=== PATIENT | female | born 2000 | race Caucasian/White ===

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

== ENCOUNTER 2019-11-13 14:57 | Emergency (ER) | payer SELFPAY ==
[2019-11-13] MEDS ORDERED: Diphtheria,Pertussis(Acell),Tetanus Vaccine 0.5 ML Syringe IM ONE (16:51)
[2019-11-13] MEDS ORDERED: traMADol 50 MG Tab PO ONE (16:52)
[2019-11-13] MEDS ORDERED: Octyl 2-Cyanoacrylate 1 APPLIC TUBE TOP ONE (16:52)
--- NOTE | 2019-11-13 17:00 | EDM.PDOC ---
ED HPI GENERAL MEDICAL PROBLEM - General Chief Complaint: Laceration Stated Complaint: HEAD INJURY Time Seen by Provider: 11/13/19 16:51 Source of Information: Reports: Patient History Limitations: Reports: No Limitations - History of Present Illness INITIAL COMMENTS - FREE TEXT/NARRATIVE: HISTORY AND PHYSICAL: History of present illness: Patient is a 19-year-old female who presents to the emergency room with complaints of soft tissue swelling and bruising to the upper forehead and a laceration across the bridge of her nose. Patient states that her television fell off the wall and hit her in the face. She denies any loss of consciousness. She is complaining of headache, blurred vision and laceration across the bridge of her nose. Unsure of her last tetanus update. Patient denies any fever, chills, headache, change in vision, syncope or near syncope. Denies any chest pain, back pain, shortness of breath or cough. Denies any GI or symptoms. patient has been eating and drinking appropriately. Review of systems: As per history of present illness and below otherwise all systems reviewed and negative. Past medical history: As per history of present illness and as reviewed below otherwise noncontributory. Surgical history: As per history of present illness and as reviewed below otherwise noncontributory. Social history: See social history for further information Family history: As per history of present illness and as reviewed below otherwise noncontributory. Physical exam: General: Well-developed and well-nourished 19-year-old female. Alert and oriented. Nontoxic-appearing and in no acute distress. HEENT: Quarter size area of soft tissue swelling and bruising noted above the left eyebrow. 1 cm superficial "C" shaped laceration noted across the bridge of nose. Both nares are patent. Scalp is nontender. 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 No drooling or trismus noted. No meningeal signs. No hot potato voice noted. Lungs: Clear to auscultation, breath sounds equal bilaterally, chest nontender. Heart: S1S2, regular rate and rhythm without overt murmur Abdomen: Soft, nondistended, nontender. Negative for masses or hepatosplenomegaly. Negative for costovertebral tenderness. Pelvis: Stable nontender. C-spine/Back: No pinpoint vertebral tenderness upon palpation. No crepitus, step -offs or obvious deformities. Patient is ambulatory into the emergency room without difficulty or deficit. Able to rock back on heels and walk on toes. Denies any urinary or fecal incontinence. Denies any numbness, tingling or saddle paresthesia. Skin: See HEENT for details. Otherwise skin is intact, warm, dry. No lesions or rashes noted. Extremities: Atraumatic, moves all extremities per self without difficulty or deficits, negative for cords or calf pain. Neurovascular unremarkable. Neuro: Awake, alert, oriented. Cranial nerves II through XII unremarkable. Cerebellum unremarkable. Motor and sensory unremarkable throughout. Exam nonfocal. Notes: Wound care was provided. Steri-Strips and Dermabond applied over the lacerated area. X-ray shows numerous lucencies around the teeth with several dental caries which are pre-existing and represent dental disease. There is diffuse soft tissue swelling and a hematoma of the right lateral face. No facial fractures noted. Supportive care measures were reviewed and discussed. Voices understanding and is agreeable to plan of care. Denies any further questions or concerns at this time. Diagnostics: Head and maxillofacial CT Therapeutics: Wound care, TDA P, Dermabond Prescription: Tramadol Impression: Head injury Laceration Plan: 1. Please keep the laceration clean and dry. Continue to monitor for signs of infection. 2. Please review and follow the head injury instructions that we discussed in her printed in your discharge packet. Limit any physical activities and follow cognitive rest (decrease screen time, reading, tv, etc..) over the next 24 hours pending resolution of symptoms. 3. Tylenol and/or ibuprofen as needed for pain management. 4. Follow-up with your primary care provider as we discussed. Return to the ED as needed and as discussed. Definitive disposition and diagnosis as appropriate pending reevaluation and review of above. Face Pain Score (Numeric/FACES): 9 - Related Data Allergies Allergy/AdvReac Type Severity Reaction Status Date / Time No Known Allergies Allergy Verified 11/13/19 16:16 Home Meds: Home Meds . 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 Musculoskeletal History: Reports: None Neurological History: Reports: None Psychiatric History: Reports: None Endocrine/Metabolic History: Reports: None Hematologic History: Reports: None Immunologic History: Reports: None Oncologic (Cancer) History: Reports: None Dermatologic History: Reports: None - Infectious Disease History Infectious Disease History: Reports: None - Past Surgical History Head Surgeries/Procedures: Reports: None Social & Family History - Family History Family Medical History: Noncontributory - Tobacco Use Smoking Status *Q: Never Smoker - Caffeine Use Caffeine Use: Reports: None - Recreational Drug Use Recreational Drug Use: No ED ROS GENERAL - Review of Systems Review Of Systems: Comprehensive ROS is negative, except as noted in HPI. ED EXAM, SKIN/RASH Exam: See Below (See dictation) Course - Vital Signs Last Recorded V/S: Last Vital Signs Temp 99.1 F 11/13/19 16:17 Pulse 85 11/13/19 16:17 Resp 16 11/13/19 16:17 BP 128/79 11/13/19 16:17 Pulse Ox 98 11/13/19 16:17 - Orders/Labs/Meds Orders: Active Orders 24 hr Category Date Time Status Vaccines to be Administered [RC] PER UNIT ROUTINE Care 11/13/19 16:52 Active Meds: Medications Discontinued Medications Generic Name Dose Route Start Last Admin Trade Name Ton PRN Reason Stop Dose Admin Diphtheria/Tetanus/Acell Pertussis 0.5 ml 11/13/19 16:51 11/13/19 17:03 Adacel IM 11/13/19 16:52 0.5 ml .ONCE ONE Administration Octyl Cyanoacrylate 1 applic 11/13/19 16:52 11/13/19 17:05 Dermabond Mini TOP 11/13/19 16:53 1 applic ONETIME ONE Administration Tramadol HCl 50 mg 11/13/19 16:52 11/13/19 17:04 Ultram PO 11/13/19 16:53 50 mg ONETIME ONE Administration Departure - Departure Time of Disposition: 18:00 Disposition: Home, Self-Care 01 Clinical Impression: Head injury, Laceration - Discharge Information Referrals: PCP,None [Primary Care Provider] - Forms: ED Department Discharge Additional Instructions: The following information is given to patients seen in the emergency department who are being discharged to home. This information is to outline your options for follow-up care. We provide all patients seen in our emergency department with a follow-up referral. The need for follow-up, as well as the timing and circumstances, are variable depending upon the specifics of your emergency department visit. If you don't have a primary care physician on staff, we will provide you with a referral. We always advise you to contact your personal physician following an emergency department visit to inform them of the circumstance of the visit and for follow-up with them and/or the need for any referrals to a consulting specialist. The emergency department will also refer you to a specialist when appropriate. This referral assures that you have the opportunity for follow-up care with a specialist. All of these measure are taken in an effort to provide you with optimal care, which includes your follow-up. Under all circumstances we always encourage you to contact your private physician who remains a resource for coordinating your care. When calling for follow-up care, please make the office aware that this follow-up is from your recent emergency room visit. If for any reason you are refused follow-up, please contact the [facility] Emergency Department at and asked to speak to the emergency department charge nurse. [facility] [address] [place] [id number] [facility] [address] [place] [id number] 1. Please keep the laceration clean and dry. Continue to monitor for signs of infection. 2. Please review and follow the head injury instructions that we discussed in her printed in your discharge packet. Limit any physical activities and follow cognitive rest (decrease screen time, reading, tv, etc..) over the next 24 hours pending resolution of symptoms. 3. Tylenol and/or ibuprofen as needed for pain management. 4. Follow-up with your primary care provider as we discussed. Return to the ED as needed and as discussed. Sepsis Event Note - Evaluation Sepsis Screening Result: No Definite Risk - Focused Exam Vital Signs: Vital Signs Temp Pulse Resp BP Pulse Ox 11/13/19 16:17 99.1 F 85 16 128/79 98 Date Exam was Performed: 11/13/19 Time Exam was Performed: 17:58 - My Orders Last 24 Hours: My Active Orders 11/13/19 16:52 Vaccines to be Administered [RC] PER UNIT ROUTINE - Assessment/Plan Last 24 Hours: My Active Orders 11/13/19 16:52 Vaccines to be Administered [RC] PER UNIT ROUTINE
--- NOTE | 2019-11-13 17:41 | CT ---
Head CT Technique: Multiple axial sections through the brain were obtained. Intravenous contrast was utilized. Findings: Significant soft tissue hematoma and swelling is noted within the right lateral face in the area of the ear and more inferiorly. Additional soft tissue swelling is seen within the left anterior frontal scalp and within the right upper parietal scalp. No abnormal parenchymal densities are seen intracranially. No evidence of intracranial hemorrhage. No midline shift or mass effect is seen. Ventricles along with basal cisterns and sulci over the convexities are within normal limits. Bone window settings were reviewed. No acute calvarial finding is seen. Mastoid sinuses and middle ear cavities are clear. Impression: 1. Soft tissue findings as noted above. 2. No acute intracranial abnormality is seen. No acute skull fracture is seen. Diagnostic code #3 This report was dictated in [place] Standard Time
--- NOTE | 2019-11-13 17:56 | CT ---
Facial bones: Multiple axial sections through the facial bones were obtained. Reconstructed coronal and sagittal images were obtained. Findings: Numerous lucencies are seen around the teeth. Several dental caries also appear to be present. No facial bone fracture is noted. Soft tissue swelling and hematoma is noted within the right side of the face. Right left globes are symmetric in size. No retrobulbar abnormality is seen. Impression: 1. Numerous lucencies around the teeth as well as several dental caries, these findings are pre-existing and represent dental disease. 2. Diffuse soft tissue swelling and hematoma within the right face. 3. No acute facial bone fracture is seen. Diagnostic code #3 This report was dictated in [place] Standard Time
== END 2019-11-13 18:23 | disposition home or self-care (01) ==
LOC: MW.ED 14:57
DX: S01.21XA Laceration without foreign body of nose, initial encounter (principal); Z23 Encounter for immunization; W20.8XXA Other cause of strike by thrown, projected or falling object, initial encounter
CPT/HCPCS: 12011; 70450; 70486; 90471; 90715; 99283; A9270

== ENCOUNTER 2019-12-09 22:28 | Emergency (ER) | payer SELFPAY ==
[2019-12-09] MEDS ORDERED: diphenhydrAMINE 50 MG/ML SDV IVPUSH ONE (22:59)
[2019-12-09] MEDS ORDERED: Metoclopramide 10 MG/2 ML SDV IVPUSH ONE (22:59)
[2019-12-09] MEDS ORDERED: Sodium Chloride 0.9% 2.5 ML Syringe FLUSH PRN (23:00)
[2019-12-09] MEDS ORDERED: Sodium Chloride 0.9% 10 ML SDV IV PRN (23:00)
[2019-12-09] MEDS ORDERED: Sodium Chloride 0.9% 10 ML Syringe FLUSH PRN (23:00)
[2019-12-09] MEDS ORDERED: Sodium Chloride 0.9% 1,000 ML IV SCH (23:15)
--- NOTE | 2019-12-10 01:05 | EDM.PDOC ---
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 The patient is a long history of headaches and this is consistent with them and it is frontal in nature with associated photophobia, nausea and vomiting. No fevers, no confusion. Her boyfriend gave her some Advil and Tylenol but she cannot keep it down. She moved to the area couple of years ago but has never gotten the doctor for follow-up. No other acute complaints. headache Pain Score (Numeric/FACES): 10 - Related Data Allergies Allergy/AdvReac Type Severity Reaction Status Date / Time No Known Allergies Allergy Verified 12/09/19 22:43 Home Meds: Home Meds . 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 Musculoskeletal History: Reports: None Neurological History: Reports: Other (See Below) Other Neuro History: neurofibratosis Psychiatric History: Reports: Anxiety, Depression Endocrine/Metabolic History: Reports: None Hematologic History: Reports: None Immunologic History: Reports: None Oncologic (Cancer) History: Reports: None Dermatologic History: Reports: None - Infectious Disease History Infectious Disease History: Reports: None - Past Surgical History Head Surgeries/Procedures: Reports: None Neurological Surgical History: Reports: None Social & Family History - Family History Family Medical History: Noncontributory - Tobacco Use Smoking Status *Q: Never Smoker Second Hand Smoke Exposure: No - Caffeine Use Caffeine Use: Reports: None - Recreational Drug Use Recreational Drug Use: No ED ROS GENERAL - Review of Systems Review Of Systems: See Below (Positive for headache, positive for photophobia, positive for nausea and vomiting, negative for fevers, all other Positives and pertinent negatives as per HPI. All other pertinent systems were reviewed and are negative) - Physical Exam Exam: See Below Text/Narrative:: Constitutional: No acute distress, Non-toxic appearance, looks like she does not feel well. HEENT: Normocephalic, Atraumatic, pupils equal round reactive to light, EOMI Neck: Normal range of motion, No stridor, trachea midline Respiratory: No respiratory distress, No tachypnea Cardiovascular: Deferred Gastrointestinal: Deferred Genital / Urinary: Deferred Musculoskeletal: All four extremities present and atraumatic Back: FROM Integument: Warm, Dry, Color is ethnicity appropriate, No rash. Neuro: Alert, Awake, oriented x3, cranial nerves grossly intact, normal gait, no focal deficits noted Psych: Affect, Judgement, mood normal Course - Vital Signs Text/Narrative:: History and exam are consistent with a migraine and the patient symptomology is nothing new so no medical work-up was being performed. The patient was given Reglan 10 mg IV and Benadryl 50 mg IV and her headache completely resolved. I talked about migraines with the patient and she will be provided with PCP follow -up. Last Recorded V/S: Last Vital Signs Temp 36.7 C 12/10/19 01:05 Pulse 86 12/10/19 01:05 Resp 17 12/10/19 01:05 BP 103/70 12/10/19 01:05 Pulse Ox 98 12/10/19 01:05 - Orders/Labs/Meds Orders: Active Orders 24 hr Category Date Time Status Peripheral IV Insertion Adult [OM.PC] Stat Oth 12/09/19 23:00 Ordered Meds: Medications Discontinued Medications Generic Name Dose Route Start Last Admin Trade Name Freq PRN Reason Stop Dose Admin Diphenhydramine HCl 50 mg 12/09/19 22:59 12/09/19 23:11 Benadryl IVPUSH 12/09/19 23:00 50 mg ONETIME ONE Administration Sodium Chloride 1,000 mls @ 999 mls/hr 12/09/19 23:15 12/09/19 23:12 Normal Saline IV 999 mls/hr ASDIRECTED TOMMY Administration Metoclopramide HCl 10 mg 12/09/19 22:59 12/09/19 23:11 Reglan IVPUSH 12/09/19 23:00 10 mg ONETIME ONE Administration Sodium Chloride 10 ml 12/09/19 23:00 Saline Flush FLUSH ASDIRECTED PRN Keep Vein Open Sodium Chloride 2.5 ml 12/09/19 23:00 Saline Flush FLUSH ASDIRECTED PRN Keep Vein Open Sodium Chloride 10 ml 12/09/19 23:00 Normal Saline IV ASDIRECTED PRN IV Use Departure - Departure Time of Disposition: 01:05 Disposition: Home, Self-Care 01 Condition: Good Clinical Impression: Migraine - Discharge Information Instructions: Migraine Headache, [id number] Referrals: PCP,Unknown [Primary Care Provider] - Forms: ED Department Discharge Care Plan Goals: The following information is given to patients seen in the emergency department who are being discharged to home. This information is to outline your options for follow-up care. We provide all patients seen in our emergency department with a follow-up referral. The need for follow-up, as well as the timing and circumstances, are variable depending upon the specifics of your emergency department visit. If you don't have a primary care physician on staff, we will provide you with a referral. We always advise you to contact your personal physician following an emergency department visit to inform them of the circumstance of the visit and for follow-up with them and/or the need for any referrals to a consulting specialist. The emergency department will also refer you to a specialist when appropriate. This referral assures that you have the opportunity for follow-up care with a specialist. All of these measure are taken in an effort to provide you with optimal care, which includes your follow-up. Under all circumstances we always encourage you to contact your private physician who remains a resource for coordinating your care. When calling for follow-up care, please make the office aware that this follow-up is from your recent emergency room visit. If for any reason you are refused follow-up, please contact the [facility] Emergency Department at and asked to speak to the emergency department charge nurse. [facility] [address] [place] [address] [id number] [address] [id number] Sepsis Event Note - Evaluation Sepsis Screening Result: No Definite Risk - Focused Exam Vital Signs: Vital Signs Temp Pulse Resp BP Pulse Ox 12/10/19 01:05 36.7 C 86 17 103/70 98 12/09/19 22:40 97 123/83 12/09/19 22:29 35.9 C L 101 H 18 86/71 L 99 Date Exam was Performed: 12/10/19 Time Exam was Performed: 05:52 - My Orders Last 24 Hours: My Active Orders 12/09/19 23:00 Peripheral IV Insertion Adult [OM.PC] Stat - Assessment/Plan Last 24 Hours: My Active Orders 12/09/19 23:00 Peripheral IV Insertion Adult [OM.PC] Stat
== END 2019-12-10 01:10 | disposition home or self-care (01) ==
LOC: MW.ED 22:28
DX: G43.909 Migraine, unspecified, not intractable, without status migrainosus (principal)
CPT/HCPCS: 96361; 96374; 96375; 99283; J1200; J2765; J7030; 99284

== ENCOUNTER 2019-12-12 16:15 | Emergency (ER) | payer SELFPAY ==
[2019-12-12] MEDS ORDERED: Ketorolac 60 MG/2 ML SDV IM ONE (16:46)
[2019-12-12] MEDS ORDERED: Ondansetron 4 MG Tab.DIS PO ONE (16:46)
--- NOTE | 2019-12-12 16:57 | EDM.PDOC ---
ED HPI GENERAL MEDICAL PROBLEM - General Chief Complaint: Headache Stated Complaint: NAUSEA,HEADACHE Time Seen by Provider: 12/12/19 16:17 Source of Information: Reports: Patient History Limitations: Reports: No Limitations - History of Present Illness INITIAL COMMENTS - FREE TEXT/NARRATIVE: HISTORY AND PHYSICAL: History of present illness: Patient is a 19-year-old female who presents to the emergency room with complaints of migraine headache, nausea, generalized low abdominal pain x3 to 4 days. Patient was seen in our emergency room 2 days ago for these symptoms. She states at that time her main concern was just her migraine. She did receive IV fluids and medications. She states her migraine somewhat improved but did not resolve completely. Continues to have some light sensitivity and nausea. She states her low abdominal pain has progressively gotten worse since this morning and has noted some dysuria. Patient denies any fever, chills, pain/ stiffness, change in vision, syncope or near syncope. Denies any chest pain, back pain, shortness of breath or cough. Denies any abdominal pain, nausea, vomiting, diarrhea, constipation. Has not noted any blood in urine or stool. Patient has been eating and drinking appropriately. PMH of neurofibromatosis. States she does not have a PCP. Review of systems: As per history of present illness and below otherwise all systems reviewed and negative. Past medical history: As per history of present illness and as reviewed below otherwise noncontributory. Surgical history: As per history of present illness and as reviewed below otherwise noncontributory. Social history: See social history for further information Family history: As per history of present illness and as reviewed below otherwise noncontributory. Physical exam: General: Well-developed and well-nourished 19-year-old female. Alert and oriented. Nontoxic-appearing and in no acute distress. HEENT: Atraumatic, normocephalic, pupils equal and reactive bilaterally, negative for conjunctival pallor or scleral icterus, mucous membranes moist, TMs normal bilaterally, mass to the right lower jawline (normal variance), throat clear, neck supple, nontender, trachea midline. No drooling or trismus noted. No meningeal signs. No hot potato voice noted. Lungs: Clear to auscultation, breath sounds equal bilaterally, chest nontender. Heart: S1S2, regular rate and rhythm without overt murmur Abdomen: Soft, nondistended, nontender. Negative for masses or hepatosplenomegaly. Negative for costovertebral tenderness. Skin: Intact, warm, dry. No lesions or rashes noted. Extremities: Atraumatic, moves all extremities per self without difficulty or deficits, negative for cords or calf pain. Neurovascular unremarkable. Neuro: Awake, alert, oriented. Cranial nerves II through XII unremarkable. Cerebellum unremarkable. Motor and sensory unremarkable throughout. Exam nonfocal. Notes: Lab work is unremarkable, with the exception of an early UTI. Patient has been here several times for her headache, stating that she has never been given a prescription by the emergency room for these headaches and would like one today. I did discuss the importance of following up and establishing care with a primary care provider for her health care needs. I will give her a small amount of diclofenac and Zofran. Supportive care measures were reviewed and discussed. Voices understanding and is agreeable to plan of care. Denies any further questions or concerns at this time. Diagnostics: CBC, CMP, UA, urine Therapeutics: Toradol, Zofran Prescription: Diclofenac, Zofran, Macrobid Impression: Headache UTI Plan: 1. Lequire diet, advance as tolerated. 2. Tylenol as needed for pain. You can use the diclofenac for your headache if needed. This medication is an anti-inflammatory so do not take any additional NSAIDs such as ibuprofen or Aleve while taking this medication. May use Zofran for nausea management. 3. You do need to establish care with a primary care provider for your healthcare needs. Please call to set up a follow-up appointment. 4. Return to the ED as needed and as discussed. Definitive disposition and diagnosis as appropriate pending reevaluation and review of above. Abdominal Pain Score (Numeric/FACES): 4 - Related Data Allergies Allergy/AdvReac Type Severity Reaction Status Date / Time No Known Allergies Allergy Verified 12/12/19 16:36 Home Meds: Home Meds Diclofenac Sodium 50 mg PO TID PRN #30 tablet. 12/12/19 [Rx] Ondansetron [Zofran ODT] 4 mg PO Q6H PRN #8 tab.dis 12/12/19 [Rx] Past Medical History - Past Health History Medical/Surgical History: Denies Medical/Surgical History HEENT History: Reports: Other (See Below) Other HEENT History: neck tumor-benign Cardiovascular History: Reports: None Respiratory History: Reports: None Gastrointestinal History: Reports: None Genitourinary History: Reports: None [employer] History: Reports: None Musculoskeletal History: Reports: None Neurological History: Reports: Other (See Below) Other Neuro History: neurofibratosis Psychiatric History: Reports: Anxiety, Depression Endocrine/Metabolic History: Reports: None Hematologic History: Reports: None Immunologic History: Reports: None Oncologic (Cancer) History: Reports: None Dermatologic History: Reports: None - Infectious Disease History Infectious Disease History: Reports: None - Past Surgical History Head Surgeries/Procedures: Reports: None Neurological Surgical History: Reports: None Social & Family History - Family History Family Medical History: Noncontributory - Tobacco Use Smoking Status *Q: Current Some Day Smoker Years of Tobacco use: 0 Packs/Tins Daily: 0 - Caffeine Use Caffeine Use: Reports: Soda, Tea - Recreational Drug Use Recreational Drug Use: No ED ROS GENERAL - Review of Systems Review Of Systems: Comprehensive ROS is negative, except as noted in HPI. - Physical Exam Exam: See Below (See dictation) Course - Vital Signs Last Recorded V/S: Last Vital Signs Temp 97.2 F 12/12/19 16:36 Pulse 90 12/12/19 16:36 Resp 16 12/12/19 16:36 BP 115/73 12/12/19 16:36 Pulse Ox 98 12/12/19 16:36 - Orders/Labs/Meds Labs: Laboratory Tests 12/12/19 12/12/19 12/12/19 Range/Units 16:50 16:50 17:01 WBC 5.73 (4.0-11.0) K/uL RBC 4.83 (4.30-5.90) M/uL Hgb 13.8 (12.0-16.0) g/dL Hct 41.4 (36.0-46.0) % MCV 85.7 (80.0-98.0) fL MCH 28.6 (27.0-32.0) pg MCHC 33.3 (31.0-37.0) g/dL RDW Std Deviation 41.6 (28.0-62.0) fl RDW Coeff of Alvaro 13 (11.0-15.0) % Plt Count 211 (150-400) K/uL MPV 10.30 (7.40-12.00) fL Neut % (Auto) 66.6 (48.0-80.0) % Lymph % (Auto) 24.6 (16.0-40.0) % [place] % (Auto) 6.8 (0.0-15.0) % Eos % (Auto) 1.7 (0.0-7.0) % Baso % (Auto) 0.3 (0.0-1.5) % Neut # (Auto) 3.8 (1.4-5.7) K/uL Lymph # (Auto) 1.4 (0.6-2.4) K/uL [place] # (Auto) 0.4 (0.0-0.8) K/uL Eos # (Auto) 0.1 (0.0-0.7) K/uL Baso # (Auto) 0.0 (0.0-0.1) K/uL Nucleated RBC % 0.0 /100WBC Nucleated RBCs # 0 K/uL Sodium (136-145) mmol/L Potassium (3.5-5.1) mmol/L Chloride (98-107) mmol/L Carbon Dioxide (21.0-32.0) mmol/L BUN (7.0-18.0) mg/dL Creatinine (0.6-1.0) mg/dL Est Cr Clr Drug Dosing mL/min Estimated GFR (MDRD) ml/min Glucose (74-106) mg/dL Calcium (8.5-10.1) mg/dL Total Bilirubin (0.2-1.0) mg/dL AST (15-37) IU/L ALT (14-63) IU/L Alkaline Phosphatase (46-116) U/L Total Protein (6.4-8.2) g/dL Albumin (3.4-5.0) g/dL Globulin (2.6-4.0) g/dL Albumin/Globulin Ratio (0.9-1.6) Urine Color YELLOW Urine Appearance SLT CLOUDY Urine pH 5.5 (5.0-8.0) Ur Specific Saxis >= 1.030 (1.001-1.035) Urine Protein NEGATIVE (NEGATIVE) mg/dL Urine Glucose (UA) NEGATIVE (NEGATIVE) mg/dL Urine Ketones TRACE H (NEGATIVE) mg/dL Urine Occult Blood LARGE H (NEGATIVE) Urine Nitrite NEGATIVE (NEGATIVE) Urine Bilirubin NEGATIVE (NEGATIVE) Urine Urobilinogen 0.2 (<2.0) EU/dL Ur Leukocyte Esterase NEGATIVE (NEGATIVE) Urine RBC 4-8 (0-2/HPF) Urine WBC 0-3 (0-5/HPF) Ur Epithelial Cells FEW (NONE-FEW) Urine Bacteria 1+ H (NEGATIVE) Urine Mucus LIGHT (NONE-MOD) Urine HCG, Qual NEGATIVE (NEGATIVE) 12/12/19 Range/Units 17:01 WBC (4.0-11.0) K/uL RBC (4.30-5.90) M/uL Hgb (12.0-16.0) g/dL Hct (36.0-46.0) % MCV (80.0-98.0) fL MCH (27.0-32.0) pg MCHC (31.0-37.0) g/dL RDW Std Deviation (28.0-62.0) fl RDW Coeff of Alvaro (11.0-15.0) % Plt Count (150-400) K/uL MPV (7.40-12.00) fL Neut % (Auto) (48.0-80.0) % Lymph % (Auto) (16.0-40.0) % [place] % (Auto) (0.0-15.0) % Eos % (Auto) (0.0-7.0) % Baso % (Auto) (0.0-1.5) % Neut # (Auto) (1.4-5.7) K/uL Lymph # (Auto) (0.6-2.4) K/uL [place] # (Auto) (0.0-0.8) K/uL Eos # (Auto) (0.0-0.7) K/uL Baso # (Auto) (0.0-0.1) K/uL Nucleated RBC % /100WBC Nucleated RBCs # K/uL Sodium 141 (136-145) mmol/L Potassium 4.1 (3.5-5.1) mmol/L Chloride 104 (98-107) mmol/L Carbon Dioxide 28.0 (21.0-32.0) mmol/L BUN 16 (7.0-18.0) mg/dL Creatinine 0.6 (0.6-1.0) mg/dL Est Cr Clr Drug Dosing 124.23 mL/min Estimated GFR (MDRD) > 60.0 ml/min Glucose 93 (74-106) mg/dL Calcium 9.4 (8.5-10.1) mg/dL Total Bilirubin 0.4 (0.2-1.0) mg/dL AST 16 (15-37) IU/L ALT 21 (14-63) IU/L Alkaline Phosphatase 64 (46-116) U/L Total Protein 8.2 (6.4-8.2) g/dL Albumin 4.2 (3.4-5.0) g/dL Globulin 4.0 (2.6-4.0) g/dL Albumin/Globulin Ratio 1.0 (0.9-1.6) Urine Color Urine Appearance Urine pH (5.0-8.0) Ur Specific Saxis (1.001-1.035) Urine Protein (NEGATIVE) mg/dL Urine Glucose (UA) (NEGATIVE) mg/dL Urine Ketones (NEGATIVE) mg/dL Urine Occult Blood (NEGATIVE) Urine Nitrite (NEGATIVE) Urine Bilirubin (NEGATIVE) Urine Urobilinogen (<2.0) EU/dL Ur Leukocyte Esterase (NEGATIVE) Urine RBC (0-2/HPF) Urine WBC (0-5/HPF) Ur Epithelial Cells (NONE-FEW) Urine Bacteria (NEGATIVE) Urine Mucus (NONE-MOD) Urine HCG, Qual (NEGATIVE) Meds: Medications Discontinued Medications Generic Name Dose Route Start Last Admin Trade Name Freq PRN Reason Stop Dose Admin Ketorolac Tromethamine 60 mg 12/12/19 16:46 12/12/19 16:56 Toradol IM 12/12/19 16:47 60 mg ONETIME ONE Administration Ondansetron HCl 4 mg 12/12/19 16:46 12/12/19 16:55 Zofran Odt PO 12/12/19 16:47 4 mg ONETIME ONE Administration Departure - Departure Time of Disposition: 17:53 Disposition: Home, Self-Care 01 Clinical Impression: Headache Qualifiers: Headache type: unspecified Headache chronicity pattern: episodic headache Intractability: not intractable Qualified Code(s): R51 - Headache UTI (urinary tract infection) Qualifiers: Urinary tract infection type: site unspecified Hematuria presence: with hematuria Qualified Code(s): N39.0 - Urinary tract infection, site not specified ; R31.9 - Hematuria, unspecified - Discharge Information Prescriptions: Diclofenac Sodium 50 mg PO TID PRN #30 tablet.dr PRN Reason: Pain Ondansetron [Zofran ODT] 4 mg PO Q6H PRN #8 tab.dis PRN Reason: Nausea Instructions: Urinary Tract Infection, Adult, [id number] Referrals: PCP,None [Primary Care Provider] - Forms: ED Department Discharge Additional Instructions: The following information is given to patients seen in the emergency department who are being discharged to home. This information is to outline your options for follow-up care. We provide all patients seen in our emergency department with a follow-up referral. The need for follow-up, as well as the timing and circumstances, are variable depending upon the specifics of your emergency department visit. If you don't have a primary care physician on staff, we will provide you with a referral. We always advise you to contact your personal physician following an emergency department visit to inform them of the circumstance of the visit and for follow-up with them and/or the need for any referrals to a consulting specialist. The emergency department will also refer you to a specialist when appropriate. This referral assures that you have the opportunity for follow-up care with a specialist. All of these measure are taken in an effort to provide you with optimal care, which includes your follow-up. Under all circumstances we always encourage you to contact your private physician who remains a resource for coordinating your care. When calling for follow-up care, please make the office aware that this follow-up is from your recent emergency room visit. If for any reason you are refused follow-up, please contact the [facility] Emergency Department at and asked to speak to the emergency department charge nurse. [facility] [address] [place] [id number] [address] 1. Lequire diet over the next 24-48 hours, advance as tolerated. 2. Tylenol as needed for pain. You can use the diclofenac for your headache if needed. This medication is an anti-inflammatory so do not take any additional NSAIDs such as ibuprofen or Aleve while taking this medication. May use Zofran for nausea management. 3. You do need to establish care with a primary care provider for your healthcare needs. Please call to set up a follow-up appointment. 4. Return to the ED as needed and as discussed. Sepsis Event Note - Evaluation Sepsis Screening Result: No Definite Risk - Focused Exam Vital Signs: Vital Signs Temp Pulse Resp BP Pulse Ox 12/12/19 16:36 97.2 F 90 16 115/73 98 Date Exam was Performed: 12/12/19 Time Exam was Performed: 18:09
[2019-12-12 17:42] LABS: BLOOD UREA NITROGEN,BUN 16 mg/dL (7.0-18.0); CHLORIDE,CL 104 mmol/L (98-107); GLUCOSE RANDOM 93 mg/dL (74-106); POTASSIUM,K 4.1 mmol/L (3.5-5.1); SODIUM,NA 141 mmol/L (136-145)
== END 2019-12-12 18:19 | disposition home or self-care (01) ==
LOC: MW.ED 16:15
DX: R51 Headache (principal); N39.0 Urinary tract infection, site not specified; R31.9 Hematuria, unspecified; F17.210 Nicotine dependence, cigarettes, uncomplicated
CPT/HCPCS: 36415; 80053; 81001; 81025; 85025; 96372; 99284; A9270; J1885